=== PATIENT | female | born 1965 | race Asian ===

== ENCOUNTER 2016-09-18 21:15 | Emergency (ER) | payer OTHER ==
[~2016-09-18] VITALS: Ht 162.6 cm; Wt 101.8 kg
[~2016-09-18 21:15] MED LIST: ADVIN25/60 PO; ALBINS/ INH; ALBU1AER9 INH; DOXE10CA PO; FLNIN/ NAE; GLC500 PO; LACT1CAP6 PO; LISI-461 PO; LPT40 PO; OMEP40CA PO; TOPI25TA99 PO; TRN400 PO; [UNRECOGNIZED DRUG - CODE] PO; glucometer strips
[2016-09-18 21:25] VITALS: TEMP 36.9; Ht 162.6 cm; Wt 101.8 kg
[2016-09-18] MEDS ORDERED: SODIUM CHLORIDE 0.9% 1000ML 1,000 ML IV STA ×3 (21:56→23:26)
[2016-09-18] MEDS ORDERED: MECLIZINE HCL 25 MG TAB PO STA (21:56)
[2016-09-18 22:11] LABS: BASO % 0.9 %; BASO ABS # 0.08 K/uL (0-0.2); COMPLETE YES; EOS % 1.9 %; HEMATOCRIT 37.5 % (37-47); IG% 0.9 %; LYMPH % 27.8 %; LYMPH ABS # 2.62 K/uL (1.2-3.4); MEAN CELL VOLUME 92.1 fL (80-100); MEAN CORPUSCULAR HEMOGLOBIN 32.2 pg (25-34); MEAN CORPUSCULAR HGB CONC 34.9 g/dl (32-36); MEAN PLATELET VOLUME 9.4 fL (7.4-10.4); MONO % 6.5 %; PLATELET COUNT 304 K/uL (130-400); RED BLOOD COUNT 4.07 M/uL (4.2-5.4); WHITE BLOOD COUNT 9.41 K/uL (4.8-10.8)
[2016-09-18 22:17] LABS: URINE APPEARANCE CLEAR (CLEAR); URINE BILIRUBIN NEG (NEG); URINE COLOR DK YELLOW; URINE EPITHELIAL CELL AUTO >30 /lpf (0-5); URINE NITRITE NEG (NEG); URINE SPECIFIC GRAVITY 1.026 (1.000-1.030); UROBILINOGEN NEG (NEG); ZZUR CULT IF INDIC CLEAN CATCH YES
[2016-09-18 22:18] LABS: MANUAL MICROSCOPIC REQUIRED? NO; REVIEW REQ? YES
[2016-09-18 22:28] LABS: ALT/SGPT 31 U/L (12-78); BLOOD UREA NITROGEN 21 mg/dl (7-18); CALCIUM 8.8 mg/dl (8.5-10.1); CARBON DIOXIDE 23 mmol/L (21-32); CHLORIDE 103 mmol/L (98-107); GLUCOSE 130 mg/dl (70-99); MAGNESIUM 2.2 mg/dl (1.8-2.4); POTASSIUM 3.5 mmol/L (3.5-5.1); SODIUM 140 mmol/L (136-145)
--- NOTE | 2016-09-18 22:38 | DIAGNOSTIC IMAGING REPORT ---
HEAD CT NONCONTRAST CT DOSE: 623.48 mGy.cm HISTORY: Mental status change weak/dizzy TECHNIQUE: Multiaxial CT images of the head were performed without the use of intravenous contrast. Comparison: None. Findings: Air-fluid level within left maxillary sinus. All remaining sinuses are clear. Trace mucosal thickening left sphenoid sinus. The calvarium and skull base are intact. The ventricles and sulci are within normal limits. There is no mass, hematoma, midline shift, or acute infarct. Impression: 1. Negative CT of the brain. 2. Mild left maxillary and sphenoid sinus change. Electronically signed by: Clovis Liu M.D. 09/18/2016 10:36 PM Dictated Date/Time: 09/18/2016 10:32 PM
[2016-09-18 22:39] LABS: ALKALINE PHOSPHATASE 98 U/L (45-117); AST/SGOT 16 U/L (15-37); CKMB/CK RATIO 0.9 (0-3.0)
[2016-09-18] MEDS ORDERED: ALBU18002 INH (23:14)
[2016-09-18] MEDS ORDERED: OMEP40CA41 PO (23:14)
[2016-09-18] MEDS ORDERED: DICY10CA12 PO (23:14)
[2016-09-18] MEDS ORDERED: AMOXICILLIN/CLAVULANATE TAB 875 MG TAB PO ONE (23:30)
[2016-09-19] MEDS ORDERED: AMOX875T PO (01:10)
[2016-09-19] MEDS ORDERED: AMOXICIL/CLAVU 875MG HOME PACK PO ONE (01:20)
[2016-09-19 01:26] VITALS: BP 117/74; PULSE 60; O2SAT 96
--- NOTE | 2016-09-19 06:20 | EMERGENCY ROOM VISIT NOTE ---
History First contact with patient: 21:44 Chief Complaint: DIZZY Stated Complaint: BLURRY VISION,LIGHTHEADEDNESS,DIZZINESS,HYPOTENSIO Nursing Triage Summary: Pt reports she was standing at work and became very dizzy. Pt sat down and symptoms subsided. Pt reports still feeling dizzy, but not as much. Denies any other symptoms History of Present Illness The patient is a 51 year old female who presents to the Emergency Room with complaints of lightheadedness and dizziness since 6 PM while at work. Patient states she's had some sinus congestion for the past few days. Patient states she woke up just fine today besides the sinus congestion. She states around 6 PM was she is having out medications at work she became lightheaded and dizzy described as feeling off balance. Patient was drinking water. Patient states she was sick last week with a viral infection but nothing this week. Patient states she feels slightly weak. Patient denies chest pain, dyspnea, fever, chills, cough, congestion, back pain, abdominal pain, nausea, vomiting, diarrhea , urinary symptoms. No history of vertigo in the past. No recent change in medications. Patient's daughter took her blood pressure and was 100/50 sitting and lower when she stood. Review of Systems See HPI for pertinent positives & negatives. A total of 10 systems reviewed and were otherwise negative. Past Medical/Surgical History Medical Problems: (1) Asthma (2) Diabetes mellitus, type 2 (3) Dyslipidemia (4) GERD (gastroesophageal reflux disease) (5) Hypertension (6) Migraine (7) LARA (obstructive sleep apnea) (8) PUD (peptic ulcer disease) Surgical Problems: (1) Cholecystectomy (2) H/O colonoscopy (3) H/O esophagogastroduodenoscopy (4) H/O lymph node biopsy (5) Hysterectomy (6) S/P section (7) S/P ear surgery (8) S/P tubal ligation Family History Cancer MOTHER (cervical CA) Diabetes mellitus Heart disease Social History Smoking Status: Never Smoker Alcohol Use: none Marital Status: Housing Status: lives with family Occupation Status: employed Current/Historical Medications Scheduled Amoxicillin & Pot Clavulanate (Augmentin 875-125 mg), 1 TAB PO BID Atorvastatin (Atorvastatin Calcium), 40 MG PO DAILY Dicyclomine Hcl (Dicyclomine Hcl), 10 MG PO TID Doxepin Hcl (Sinequan), 10 MG PO HS Fluticasone Prop/Salmeterol (Advair Diskus 250/50 60 Dose), 2 PUFFS PO BID Lactobacillus (Probiotic), 1 CAP PO DAILY Lisinopril (Lisinopril), 10 MG PO DAILY Metformin HCl (Metformin HCl), 500 MG PO BID Omeprazole (Prilosec), 40 MG PO DAILY Pentoxifylline (Pentoxifylline ER), 400 MG PO TID Topiramate (Topamax ), 50 MG PO HS Scheduled PRN Albuterol Sulf (Proventil 0.083% 2.5MG/3ML), 2.5 MG INH QID PRN for Cough Albuterol Sulfate (Proair Respiclick), 2 PUFFS INH Q4 PRN for Cough Fluticasone Propionate (Fluticasone Propionate), 2 SPRAYS KRISTEN DAILY PRN for PRN Mefenamic Acid (Ponstel), 250 MG PO Q6 PRN for Migraine Durable Medical Equipment [glucometer strips], BOX Allergies Coded Allergies: Latex1 -Allergic Contact Dermititis (Verified Allergy, Mild, red rash, ) Chicken Meat (Verified Allergy, Unknown, RASH, 09/18/16) Hydrocodone (Verified Adverse Reaction, Mild, N&V, 09/18/16) Physical Exam Vital Signs Date Time Temp Pulse Resp B/P Pulse Ox O2 Delivery O2 Flow Rate FiO2 09/19/16 01:26 60 20 117/74 96 09/19/16 00:18 79 20 107/72 98 Room Air 09/18/16 23:02 74 09/18/16 22:51 74 20 97/54 97 Room Air 09/18/16 21:47 78 16 90/59 99 Room Air 79 106/68 89 95/67 09/18/16 21:25 36.9 88 16 95/64 99 Room Air Physical Exam VITALS: Vitals are noted on the nurse's note and reviewed by myself. Vital signs hypotensive. GENERAL: Pleasant female following commands, in no acute distress, nondiaphoretic, well-developed well-nourished. SKIN: The skin was without rashes, erythema, edema, or bruising. There is no tenting of the skin. Capillary reflex less than 2 seconds. HEAD: Normocephalic atraumatic. EARS: External auditory canals clear, tympanic membranes pearly muhammad without erythema or effusion bilaterally. EYES: Pupils equal round and reactive to light and accommodation. Conjunctivae without injection, sclerae without icterus. Extraocular movements intact. NOSE: Patent, turbinates without inflammation or discharge. MOUTH: Mucous membranes moist. Pharynx without erythema or exudate. Uvula midline. Airway patent. Tongue does not deviate. NECK: Supple without nuchal rigidity. No lymphadenopathy. No thyromegaly. Cervical spine is nontender. No JVD. HEART: Regular rate and rhythm without murmurs gallops or rubs. LUNGS: Clear to auscultation bilaterally without wheezes, rales or rhonchi. No dullness to percussion. No retractions or accessory muscle use. ABDOMEN: Positive bowel sounds x 4. Normal tympanic percussion. Soft, nontender, without masses or organomegaly. Francois sign negative. No guarding or rebound tenderness. MUSCULOSKELETAL: No muscle atrophy, erythema, or edema noted. 5 out of 5 strength throughout NEURO: Patient was alert and oriented to person place and time. Normal sensation to light and sharp touch. No focal neurological deficits. Cranial nerves II-12 grossly intact. No pronator drift. Cerebellar exam intact. Medical Decision & Procedures Laboratory Results 09/18/16 21:45 Red Blood Count 4.07, Mean Corpuscular Volume 92.1, Mean Corpuscular Hemoglobin 32.2, Mean Corpuscular Hemoglobin Concent 34.9, Mean Platelet Volume 9.4, Neutrophils (%) (Auto) 62.0, Lymphocytes (%) (Auto) 27.8, Monocytes (%) (Auto) 6.5, Eosinophils (%) (Auto) 1.9, Basophils (%) (Auto) 0.9, Neutrophils # (Auto) 5.84, Lymphocytes # (Auto) 2.62, Monocytes # (Auto) 0.61, Eosinophils # (Auto) 0.18, Basophils # (Auto) 0.08 09/18/16 21:45 Test 09/18/16 21:45 White Blood Count 9.41 K/uL (4.8-10.8) Red Blood Count 4.07 M/uL (4.2-5.4) Hemoglobin 13.1 g/dL (12.0-16.0) Hematocrit 37.5 % (37-47) Mean Corpuscular Volume 92.1 fL (80-100) Mean Corpuscular Hemoglobin 32.2 pg (25-34) Mean Corpuscular Hemoglobin Concent 34.9 g/dl (32-36) Platelet Count 304 K/uL (130-400) Mean Platelet Volume 9.4 fL (7.4-10.4) Neutrophils (%) (Auto) 62.0 % Lymphocytes (%) (Auto) 27.8 % Monocytes (%) (Auto) 6.5 % Eosinophils (%) (Auto) 1.9 % Basophils (%) (Auto) 0.9 % Neutrophils # (Auto) 5.84 K/uL (1.4-6.5) Lymphocytes # (Auto) 2.62 K/uL (1.2-3.4) Monocytes # (Auto) 0.61 K/uL (0.11-0.59) Eosinophils # (Auto) 0.18 K/uL (0-0.5) Basophils # (Auto) 0.08 K/uL (0-0.2) RDW Standard Deviation 41.6 fL (36.4-46.3) RDW Coefficient of Variation 12.3 % (11.5-14.5) Immature Granulocyte % (Auto) 0.9 % Immature Granulocyte # (Auto) 0.08 K/uL (0.00-0.02) Urine Color DK YELLOW Urine Appearance CLEAR (CLEAR) Urine pH 5.0 (4.5-7.5) Urine Specific Webster 1.026 (1.000-1.030) Urine Protein 1+ (NEG) Urine Glucose (UA) NEG (NEG) Urine Ketones 1+ (NEG) Urine Occult Blood NEG (NEG) Urine Nitrite NEG (NEG) Urine Bilirubin NEG (NEG) Urine Urobilinogen NEG (NEG) Urine Leukocyte Esterase TRACE (NEG) Urine WBC (Auto) 1-5 /hpf (0-5) Urine RBC (Auto) 0-4 /hpf (0-4) Urine Hyaline Casts (Auto) 10-30 /lpf (0-5) Urine Epithelial Cells (Auto) >30 /lpf (0-5) Urine Bacteria (Auto) 1+ (NEG) Urine Renal Epithelial Cells 0-5 /lpf (0-5) Anion Gap 14.0 mmol/L (3-11) Est Creatinine Clear Calc Drug Dose 60.8 ml/min Estimated GFR () 55.8 Estimated GFR (Non- 48.1 BUN/Creatinine Ratio 16.0 (10-20) Calcium Level 8.8 mg/dl (8.5-10.1) Magnesium Level 2.2 mg/dl (1.8-2.4) Total Bilirubin 0.4 mg/dl (0.2-1) Direct Bilirubin 0.1 mg/dl (0-0.2) Aspartate Amino Transf (AST/SGOT) 16 U/L (15-37) Alanine Aminotransferase (ALT/SGPT) 31 U/L (12-78) Alkaline Phosphatase 98 U/L (45-117) Total Creatine Kinase 199 U/L (26-192) Creatine Kinase MB 1.8 ng/ml (0.5-3.6) Creatine Kinase MB Ratio 0.9 (0-3.0) Troponin I < 0.015 ng/ml (0-0.045) Total Protein 7.6 gm/dl (6.4-8.2) Albumin 3.9 gm/dl (3.4-5.0) Thyroid Stimulating Hormone (TSH) 1.460 uIu/ml (0.300-4.500) Medications Administered Medications (Trade) Dose Ordered Sig/Melida Route Start Time Stop Time Status Last Admin Dose Admin Sodium Chloride 1,000 ml @ 999 mls/hr Q1H1M STAT IV 09/18/16 21:56 09/18/16 22:56 DC 09/18/16 22:08 999 MLS/HR Sodium Chloride (Nss 1000ml) 1,000 ml @ 125 mls/hr Q8H STAT IV 09/18/16 21:56 09/19/16 01:51 DC 09/18/16 21:56 125 MLS/HR Meclizine HCl (Antivert Tab) 25 mg NOW STAT PO 09/18/16 21:56 09/18/16 22:00 DC 09/18/16 22:12 25 MG Amoxicillin/ Clavulanate Potassium 875 mg 875 mg ONE ONCE PO 09/18/16 23:30 09/18/16 23:31 DC 09/18/16 23:35 875 MG Sodium Chloride (Nss 1000ml) 1,000 ml @ 999 mls/hr Q1H1M STAT IV 09/18/16 23:26 09/19/16 00:26 DC 09/18/16 23:34 999 MLS/HR Amoxicillin/ Clavulanate Potassium (Augmentin 875MG Home Pack) 1 [facility] STK-MED ONCE PO 09/19/16 01:20 09/19/16 01:21 DC 09/19/16 01:28 1 [facility] ED Course Prior records/ancillary studies reviewed. Triage Nursing notes reviewed. The patient's history was concerning for dizziness and vertigo. Differential diagnosis: Etiologies such as benign positional vertigo, dehydration, hypovolemia, anemia, tumor, infection, hypoglycemia, electrolyte abnormalities, cardiac sources, intracerebral event, toxicologic, neurologic, as well as others were entertained. Physical examination: As above. No pathologic nystagmus. ER treatment provided: IV hydration with normal saline, 1000 ml. Meclizine On reassessment the patient felt well. Diagnostics interpretation by me: ECG: Normal sinus rhythm without ischemic change or evidence of dysrhythmia. Normal sinus, normal intervals, no acute ST-T wave changes. Impression normal sinus rhythm interpreted by myself The labs revealed a normal CBC and chemistry panel except a mildly elevated creatinine. [~ rep ct add3]] HEAD CT NONCONTRAST CT DOSE: 623.48 mGy.cm HISTORY: Mental status change weak/dizzy TECHNIQUE: Multiaxial CT images of the head were performed without the use of intravenous contrast. Comparison: None. Findings: Air-fluid level within left maxillary sinus. All remaining sinuses are clear. Trace mucosal thickening left sphenoid sinus. The calvarium and skull base are intact. The ventricles and sulci are within normal limits. There is no mass, hematoma, midline shift, or acute infarct. Impression: 1. Negative CT of the brain. 2. Mild left maxillary and sphenoid sinus change. Electronically signed by: Clovis Liu M.D. 09/18/2016 10:36 PM It appears the patient was slightly dehydrated who has a sinus infection who is dizzy and felt much better to be medicated as above. Patient most likely was dizzy from the sinus infection. Patient was able tolerate fluids and ate a full meal without difficulties. She admitted without difficulties. She felt much better and requested to leave. She is advised to rest, stay well-hydrated and to follow-up family care in a few days or here in the ER sooner for chest pain, difficulty breathing, dizziness, worsening signs or symptoms or as needed. Patient was neurovascularly and neurologically intact.. By the evaluation outlined above emergent etiologies such as infection, hypoglycemia, electrolyte abnormalities, cardiac sources, intracerebral event, toxicologic, neurologic,as well as others were deemed relatively unlikely. The pt informed about the findings as listed above. All questions were answered and pleased with the treatment. Return instructions were outlined and the patient was discharged in stable condition. Medication: Augmentin Referral: The patient was referred back to their primary care physician for follow-up in 2 to 3 days for a recheck of the current condition. Case reviewed with my attending Medical Decision As above Departure Information Dispostion Home / Self-Care Condition GOOD Prescriptions Amoxicillin & Pot Clavulanate (Augmentin 875-125 mg) 1 Tab Tab 1 TAB PO BID for 9 Days, #18 TAB Prov: Vicky Johnson .CHARBEL 09/19/16 Referrals Christopher Mcmanus M.D. (PCP) Patient Instructions My [facility] Additional Instructions Amoxicillin Clavulanate (Augmentin) 875mg: Take one pill twice daily for 10 days for your infection. All antibiotics can cause diarrhea. If this occurs and you feel worse or it does not resolve in 1-2 days follow up with your doctor or return to the Emergency Department as this could be signs of serious underlying problems. Any medication can cause an allergic reaction, stop the pills immediately and return to the ER for rash, hives, breathing difficulties, or swelling. Ibuprofen(Motrin, Advil) may be used for fever or pain. Use 600mg every six hours as needed. Take with food. Avoid using more than 2400mg in a 24 hour period. Do not use 2400mg per day for more than three consecutive days without physician direction. Prolonged inappropriate use can lead to stomach upset or ulcers. (AND/OR) Acetaminophen(Tylenol) may be used for fever or pain. Use 1000mg every six hours as needed. Avoid using more than 3000mg in a 24 hour period. Rest and drink plenty of fluids. Continue current medications. Return to the ER for chest pain, syncope, fevers, confusion, headache, neck stiffness, or any worsening of your condition. Follow up with your primary physician within 2-3 days for a recheck of the current condition.
[2016-09-19] MEDS ORDERED: AMOXICILLIN/CLAVULANATE TAB 875 MG TAB PO SCH (09:00)
== END 2016-09-19 01:33 | disposition home or self-care (01) ==
LOC: C.EDB 21:17 → C.EDC 09-19 01:33
DX: J32.9 Chronic sinusitis, unspecified (principal); R42 Dizziness and giddiness; E11.9 Type 2 diabetes mellitus without complications; E78.5 Hyperlipidemia, unspecified; I10 Essential (primary) hypertension; K21.9 Gastro-esophageal reflux disease without esophagitis; G47.33 Obstructive sleep apnea (adult) (pediatric); J45.909 Unspecified asthma, uncomplicated; Z79.84 Long term (current) use of oral hypoglycemic drugs; Z79.899 Other long term (current) drug therapy; Z88.5 Allergy status to narcotic agent; Z91.040 Latex allergy status; Z87.11 Personal history of peptic ulcer disease; Z80.49 Family history of malignant neoplasm of other genital organs; Z82.49 Family history of ischemic heart disease and other diseases of the circulatory system; Z83.3 Family history of diabetes mellitus

== ENCOUNTER 2017-06-24 17:40 | Emergency (ER) | payer OTHER ==
[~2017-06-24] VITALS: Ht 162.6 cm; Wt 109.1 kg
[~2017-06-24 17:40] MED LIST changes: +ALBU18002 INH; -ALBU1AER9 INH; +DICY10CA12 PO; -OMEP40CA PO; +OMEP40CA41 PO
[2017-06-24 17:42] VITALS: TEMP 37.1; Ht 162.6 cm; Wt 109.1 kg
[2017-06-24] MEDS ORDERED: SODIUM CHLORIDE 0.9% 500ML 500 ML IV STA (17:56)
[2017-06-24] MEDS ORDERED: ONDANSETRON INJ 2 MG/ML 2 ML VIAL IV STA (17:56)
[2017-06-24 18:14] LABS: BASO % 0.3 %; BASO ABS # 0.02 K/uL (0-0.2); COMPLETE YES; EOS % 1.7 %; HEMATOCRIT 37.1 % (37-47); IG% 0.5 %; LYMPH % 23.1 %; LYMPH ABS # 1.35 K/uL (1.2-3.4); MEAN CELL VOLUME 93.2 fL (80-100); MEAN CORPUSCULAR HEMOGLOBIN 31.9 pg (25-34); MEAN CORPUSCULAR HGB CONC 34.2 g/dl (32-36); MEAN PLATELET VOLUME 9.6 fL (7.4-10.4); MONO % 10.3 %; NEUT % 64.1 %; PLATELET COUNT 260 K/uL (130-400); RED BLOOD COUNT 3.98 M/uL (4.2-5.4); WHITE BLOOD COUNT 5.85 K/uL (4.8-10.8)
[2017-06-24] MEDS ORDERED: LOSA1TAB PO (18:16)
[2017-06-24 18:26] LABS: PARTIAL THROMBOPLASTIN RATIO 0.9; PROTHROMBIN TIME (PATIENT) 10.3 SECONDS (9.0-12.0)
--- NOTE | 2017-06-24 18:29 | DIAGNOSTIC IMAGING REPORT ---
CHEST ONE VIEW PORTABLE CLINICAL HISTORY: Pain, rating to the abdomen. COMPARISON STUDY: 05/13/2016 FINDINGS: The heart is borderline enlarged. There is aortic tortuosity. There is no failure. There is no lobar consolidation. There are mild basilar atelectatic changes. There is no free intraperitoneal air.[ IMPRESSION: No active disease in the chest. Electronically signed by: Abelino Oetro M.D. 06/24/2017 6:28 PM Dictated Date/Time: 06/24/2017 6:27 PM
[2017-06-24 19:30] LABS: BUN/CREATININE RATIO 12.9 (10-20); CALCIUM 8.1 mg/dl (8.5-10.1); CREATININE 0.78 mg/dl (0.60-1.20); POTASSIUM 3.2 mmol/L (3.5-5.1)
[2017-06-24 21:07] LABS: URINE APPEARANCE CLEAR (CLEAR); URINE BILIRUBIN NEG (NEG); URINE COLOR YELLOW; URINE EPITHELIAL CELL AUTO >30 /lpf (0-5); URINE NITRITE NEG (NEG); URINE PH 5.5 (4.5-7.5); URINE SPECIFIC GRAVITY 1.017 (1.000-1.030); UROBILINOGEN NEG (NEG); ZZUR CULT IF INDIC CLEAN CATCH NO
[2017-06-24 21:09] LABS: MANUAL MICROSCOPIC REQUIRED? NO; REVIEW REQ? NO
[2017-06-24] MEDS ORDERED: ONDA4TAB10 SL (21:27)
--- NOTE | 2017-06-24 21:29 | EMERGENCY ROOM VISIT NOTE ---
History Report prepared by Lucia: Tarun Quintanilla Under the Supervision of: Dr. Thomas Perdue D.O. First contact with patient: 17:46 Chief Complaint: CHEST PAIN Stated Complaint: CHEST PAIN, BACK PAIN,L HAND NUMBNESS,STOMACH PAIN Nursing Triage Summary: pt reports she has chest and back pain started on the . feels nauseated, vomited 3 x. History of Present Illness The patient is a 52 year old female who presents to the Emergency Room with complaints of constant chest pain starting two days ago. The patient notes that the pain is like a heaviness, and she is also having upper back pain, abdominal pain, left hand numbness, nausea, and vomiting. She states that she was on a flight two days ago that was 20 hours long, and she started to get the symptoms only four hours into the flight. She reports that she had shortness of breath while on the plane. The patient states that she has not been able to eat, and she last vomited and had diarrhea last night. She denies any smoking. The patient has had a hysterectomy and a cholecystectomy, and she is also prediabetic. Source of History: patient Onset: two days ago Position: chest Quality: other (heaviness) Timing: constant Associated Symptoms: + SOB, + nausea, + vomiting, + abdominal pain, + back pain, + diarrhea Review of Systems See HPI for pertinent positives & negatives. A total of 10 systems reviewed and were otherwise negative. Past Medical & Surgical Medical Problems: (1) Asthma (2) Diabetes mellitus, type 2 (3) Dyslipidemia (4) GERD (gastroesophageal reflux disease) (5) Hypertension (6) Migraine (7) LARA (obstructive sleep apnea) (8) PUD (peptic ulcer disease) Surgical Problems: (1) Cholecystectomy (2) H/O colonoscopy (3) H/O esophagogastroduodenoscopy (4) H/O lymph node biopsy (5) Hysterectomy (6) S/P section (7) S/P ear surgery (8) S/P tubal ligation Family History Cancer MOTHER (cervical CA) Diabetes mellitus Heart disease Social History Smoking Status: Never Smoker Alcohol Use: none Marital Status: Housing Status: lives with family Occupation Status: employed Current/Historical Medications Scheduled Atorvastatin (Atorvastatin Calcium), 40 MG PO DAILY Dicyclomine Hcl (Dicyclomine Hcl), 10 MG PO TID Lactobacillus (Probiotic), 1 CAP PO DAILY Losartan Potassium (Cozaar), 25 MG PO DAILY Metformin HCl (Metformin HCl), 500 MG PO BID Omeprazole (Prilosec), 40 MG PO DAILY Ondasetron Odt (Zofran Odt), 4 MG SL Q6H Pentoxifylline (Pentoxifylline ER), 400 MG PO TID Topiramate (Topamax ), 50 MG PO HS Scheduled PRN Albuterol Sulf (Proventil 0.083% 2.5MG/3ML), 2.5 MG INH QID PRN for Cough Albuterol Sulfate (Proair Respiclick), 2 PUFFS INH Q4 PRN for Cough Fluticasone Prop/Salmeterol (Advair Diskus 250/50 60 Dose), 2 PUFFS PO BID PRN for SOB/Wheezing Fluticasone Propionate (Fluticasone Propionate), 2 SPRAYS KRISTEN DAILY PRN for PRN Allergies Coded Allergies: Latex1 -Allergic Contact Dermititis (Verified Allergy, Mild, red rash, ) Chicken Meat (Verified Allergy, Unknown, RASH, 06/24/17) Hydrocodone (Verified Adverse Reaction, Mild, N&V, 06/24/17) Physical Exam Vital Signs Date Time Temp Pulse Resp B/P (MAP) Pulse Ox O2 Delivery O2 Flow Rate FiO2 06/24/17 21:45 78 18 138/79 97 Room Air 06/24/17 19:40 71 18 110/67 98 Room Air 06/24/17 18:18 71 06/24/17 17:42 37.1 81 18 142/97 97 Room Air Physical Exam CONSTITUTIONAL/VITAL SIGNS: Reviewed / noted above. GENERAL: Non-toxic in appearance. INTEGUMENTARY: Warm, dry, and [place]. HEAD: Normocephalic. EYES: without scleral icterus or trauma. ENT/OROPHARYNX: clear and moist. LYMPHADENOPATHY/NECK: Is supple without lymphadenopathy or meningismus. RESPIRATORY: Lungs clear and equal. CARDIOVASCULAR: Regular rate and rhythm. GI/ABDOMEN: Soft and nontender. No organomegaly or pulsatile mass. No rebound or guarding. Normal bowel sounds. EXTREMITIES: Warm and well perfused. BACK: No CVA tenderness. NEUROLOGICAL: Intact without focal deficits. PSYCHIATRIC: normal affect. MUSCULOSKELETAL: Normally developed with good muscle tone. Medical Decision & Procedures ER Provider Diagnostic Interpretation: Radiology results as stated below per my review and radiologist interpretation: CHEST ONE VIEW PORTABLE CLINICAL HISTORY: Pain, rating to the abdomen. COMPARISON STUDY: 05/13/2016 FINDINGS: The heart is borderline enlarged. There is aortic tortuosity. There is no failure. There is no lobar consolidation. There are mild basilar atelectatic changes. There is no free intraperitoneal air.[ IMPRESSION: No active disease in the chest. Electronically signed by: Abelino Otero M.D. 06/24/2017 6:28 PM Dictated Date/Time: 06/24/2017 6:27 PM Laboratory Results 06/24/17 18:03 Red Blood Count 3.98, Mean Corpuscular Volume 93.2, Mean Corpuscular Hemoglobin 31.9, Mean Corpuscular Hemoglobin Concent 34.2, Mean Platelet Volume 9.6, Neutrophils (%) (Auto) 64.1, Lymphocytes (%) (Auto) 23.1, Monocytes (%) (Auto) 10.3, Eosinophils (%) (Auto) 1.7, Basophils (%) (Auto) 0.3, Neutrophils # (Auto ) 3.75, Lymphocytes # (Auto) 1.35, Monocytes # (Auto) 0.60, Eosinophils # (Auto ) 0.10, Basophils # (Auto) 0.02 06/24/17 18:03 Test 06/24/17 18:03 06/24/17 20:40 White Blood Count 5.85 K/uL (4.8-10.8) Red Blood Count 3.98 M/uL (4.2-5.4) Hemoglobin 12.7 g/dL (12.0-16.0) Hematocrit 37.1 % (37-47) Mean Corpuscular Volume 93.2 fL (80-100) Mean Corpuscular Hemoglobin 31.9 pg (25-34) Mean Corpuscular Hemoglobin Concent 34.2 g/dl (32-36) Platelet Count 260 K/uL (130-400) Mean Platelet Volume 9.6 fL (7.4-10.4) Neutrophils (%) (Auto) 64.1 % Lymphocytes (%) (Auto) 23.1 % Monocytes (%) (Auto) 10.3 % Eosinophils (%) (Auto) 1.7 % Basophils (%) (Auto) 0.3 % Neutrophils # (Auto) 3.75 K/uL (1.4-6.5) Lymphocytes # (Auto) 1.35 K/uL (1.2-3.4) Monocytes # (Auto) 0.60 K/uL (0.11-0.59) Eosinophils # (Auto) 0.10 K/uL (0-0.5) Basophils # (Auto) 0.02 K/uL (0-0.2) RDW Standard Deviation 43.6 fL (36.4-46.3) RDW Coefficient of Variation 12.8 % (11.5-14.5) Immature Granulocyte % (Auto) 0.5 % Immature Granulocyte # (Auto) 0.03 K/uL (0.00-0.02) Prothrombin Time 10.3 SECONDS (9.0-12.0) Prothromb Time International Ratio 1.0 (0.9-1.1) Activated Partial Thromboplast Time 24.3 SECONDS (21.0-31.0) Partial Thromboplastin Ratio 0.9 Anion Gap 7.0 mmol/L (3-11) Est Creatinine Clear Calc Drug Dose 104.2 ml/min Estimated GFR () 102.7 Estimated GFR (Non- 88.6 BUN/Creatinine Ratio 12.9 (10-20) Calcium Level 8.1 mg/dl (8.5-10.1) Total Bilirubin 0.5 mg/dl (0.2-1) Direct Bilirubin 0.2 mg/dl (0-0.2) Aspartate Amino Transf (AST/SGOT) 34 U/L (15-37) Alanine Aminotransferase (ALT/SGPT) 58 U/L (12-78) Alkaline Phosphatase 156 U/L (45-117) Total Protein 7.3 gm/dl (6.4-8.2) Albumin 3.5 gm/dl (3.4-5.0) Lipase 98 U/L (73-393) Urine Color YELLOW Urine Appearance CLEAR (CLEAR) Urine pH 5.5 (4.5-7.5) Urine Specific [place] 1.017 (1.000-1.030) Urine Protein NEG (NEG) Urine Glucose (UA) NEG (NEG) Urine Ketones NEG (NEG) Urine Occult Blood NEG (NEG) Urine Nitrite NEG (NEG) Urine Bilirubin NEG (NEG) Urine Urobilinogen NEG (NEG) Urine Leukocyte Esterase NEG (NEG) Urine WBC (Auto) 1-5 /hpf (0-5) Urine RBC (Auto) 0-4 /hpf (0-4) Urine Hyaline Casts (Auto) 1-5 /lpf (0-5) Urine Epithelial Cells (Auto) >30 /lpf (0-5) Urine Bacteria (Auto) NEG (NEG) Laboratory results as stated above per my review. Medications Administered Medications (Trade) Dose Ordered Sig/Melida Route Start Time Stop Time Status Last Admin Dose Admin Ondansetron HCl (Zofran Inj) 4 mg NOW STAT IV 06/24/17 17:56 06/24/17 17:59 DC 06/24/17 18:13 4 MG Sodium Chloride 500 ml @ 999 mls/hr Q31M STAT IV 06/24/17 17:56 06/24/17 18:26 DC 06/24/17 18:12 999 MLS/HR ECG Indication: chest pain, vomiting Rate (beats per minute): 75 Rhythm: normal sinus Findings: no ectopy, other (No acute injury) ED Course 1746: Previous medical records were reviewed. The patient was evaluated in room A11. A complete history and physical examination was performed. 1756: Sodium Chloride 500 ml @ 999 mls/hr IV, Zofran 4mg IV 2133: On reevaluation, the patient is doing well and stable. I discussed the results and findings with the patient. She verbalized agreement of the treatment plan. She was discharged home. Medical Decision Differential diagnosis: Etiologies such as gastroenteritis, food borne illness, infections, appendicitis , diverticulitis, inflammatory bowel disease, obstruction, GI bleed, biliary pathology, as well as others were entertained. This is a 52-year-old female who presents to the ED with a chief complaint of heaviness in her chest, upper back discomfort and some stomach pain. She also reports nausea, vomiting and diarrhea. She just got here yesterday from the [facility]. The patient states that her symptoms started about 3 hours into her travels. She also reported some numbness in her left hand/arm. The patient does report a history of cholecystectomy as well as hysterectomy. She has no other specific complaints at this time. Her vital signs are stable. Physical exam did not show any significant abnormalities. Her abdomen was soft and nontender. Lungs are clear. Heart was within normal limits. An EKG shows a normal sinus rhythm at a rate of 75. CBC is normal, chest x-ray did not show acute process. Complete mental panel was unremarkable, lipase was normal and urine did not show infection. The patient was told the results of the tests. She is felt to be stable for discharge and outpatient follow-up. She was treated with IV Zofran and IV fluids. Medication Reconcilliation Current Medication List: was personally reviewed by me Blood Pressure Screening Patient's blood pressure: Normal blood pressure Impression Primary Impression: Vomiting and diarrhea Additional Impression: Chest pain Scribe Attestation The scribe's documentation has been prepared under my direction and personally reviewed by me in its entirety. I confirm that the note above accurately reflects all work, treatment, procedures, and medical decision making performed by me. Departure Information Dispostion Home / Self-Care Prescriptions Ondasetron Odt (ZOFRAN ODT) 4 Mg Tab 4 MG SL Q6H for Nausea, #15 TAB Prov: Thomas Perdue D.O. 06/24/17 Referrals Christopher Mcmanus M.D. (PCP) Forms Call Back Authorization, HOME CARE DOCUMENTATION FORM, IMPORTANT VISIT INFORMATION Patient Instructions Abdominal Pain, ED Nausea Vomiting, My [facility] Additional Instructions Zofran: Allow one tablet to dissolve under the tongue every 6 hours as needed for nausea or vomiting. Follow-up with your doctor for further care and evaluation in 1-2 days. Return to the emergency department for worsening or new symptoms or any concerns. You have been examined and treated today on an emergency basis only. This is not a substitute for, or an effort to provide, complete comprehensive medical care. It is impossible to recognize and treat all injuries or illnesses in a single emergency department visit. It is therefore important that you follow up closely with your doctor. Call as soon as possible for an appointment. Problem Qualifiers
[2017-06-24 21:45] VITALS: BP 138/79; PULSE 78; O2SAT 97
== END 2017-06-24 22:05 | disposition home or self-care (01) ==
LOC: C.EDB 17:41 → C.EDA 22:05
DX: R11.10 Vomiting, unspecified (principal); R19.7 Diarrhea, unspecified; R07.9 Chest pain, unspecified; J45.909 Unspecified asthma, uncomplicated; E11.9 Type 2 diabetes mellitus without complications; E78.5 Hyperlipidemia, unspecified; K21.9 Gastro-esophageal reflux disease without esophagitis; I10 Essential (primary) hypertension; G47.33 Obstructive sleep apnea (adult) (pediatric); K27.9 Peptic ulcer, site unspecified, unspecified as acute or chronic, without hemorrhage or perforation; Z83.3 Family history of diabetes mellitus; Z82.49 Family history of ischemic heart disease and other diseases of the circulatory system